=== PATIENT | male | born 1995 | race Hispanic/Latino ===

== ENCOUNTER 2023-01-15 08:46 | Emergency (ER) | payer OTHER ==
[~2023-01-15] VITALS: Ht 180.3 cm; Wt 77.1 kg
[2023-01-15 08:47] VITALS: BP 143/85
[2023-01-15] MEDS ORDERED: TETANUS/DIPHTHERIA TOXOID [ADULT] 0.5 ML VIAL IM ONE (09:00)
[2023-01-15] MEDS ORDERED: BACITRACIN 1 EACH PACKET TP ONE (10:00)
[2023-01-15] MEDS ORDERED: CEPH500B PO (10:31)
== END 2023-01-15 10:48 | disposition home or self-care (01) ==
LOC: EDH 08:46
DX: S91.111A Laceration without foreign body of right great toe without damage to nail, initial encounter (principal); S91.114A Laceration without foreign body of right lesser toe(s) without damage to nail, initial encounter; W26.0XXA Contact with knife, initial encounter; Y93.89 Activity, other specified; Y92.89 Other specified places as the place of occurrence of the external cause; Y99.8 Other external cause status
CPT/HCPCS: 12002; 90471; 90714